=== PATIENT | male | born 1970 | race Caucasian/White ===

== ENCOUNTER 2022-07-01 15:15 | Outpatient (RCR) | payer BC, SELFPAY ==
[2022-04-07 08:46] LABS: Red Blood Count 5.57 m/uL (4.30-5.90); White Blood Count* 17.52 K/uL (4.50-11.00)
[2022-04-07 08:47] LABS: Basophils Percent Auto 0.1 % (0.0-3.0); Eosinophils Percent Auto 0.4 % (0.0-7.0); Hematocrit 49.4 % (37.0-53.0); Hemoglobin* 16.1 gm/dL (13.5-17.5); Immature Granulocytes Pct Auto 0.1 %; Lymphocytes Percent Auto 57.6 % (20-44); Mean Corpuscular HGB Conc 33 gm/dL (32-36); Mean Corpuscular Hemoglobin 29 pg (26-34); Mean Corpuscular Volume 89 fL (80-100); Monocytes Percent Auto 5.8 % (0.0-11.0); Platelet Count* 182 K/uL (140-440)
[2022-04-07 08:48] LABS: Slide Review Reflex No
[2022-04-07 08:52] LABS: Albumin* 4.3 g/dL (3.3-5.0); Chloride* 102 mmol/L (96-114)
[2022-04-07 08:53] LABS: Potassium* 3.6 mmol/L (3.6-5.1); Sodium* 138 mmol/L (135-149)
[2022-04-07 08:55] LABS: Alkaline Phosphatase* 82 U/L (40-150); Aspartate Amino Transferase* 27 U/L (12-35); Bilirubin Total* 0.6 mg/dL (0.1-1.5); Blood Urea Nitrogen* 20 mg/dL (7-30); Carbon Dioxide* 28 mmol/L (20-32); Creatinine* 0.8 mg/dL (0.5-1.5); Estimated Glomerular Filt Rate 107 ml/min; Glucose* 128 mg/dL (60-115); Lactate Dehydrogenase* 425 U/L (313-618); Total Protein* 7.2 g/dL (6.0-8.3)
[2022-04-07 08:56] LABS: Alanine Aminotransferase* 40 U/L (4-50); Calcium* 8.8 mg/dL (8.4-10.6)
--- NOTE | 2022-04-08 17:01 | ONC.NURNOTE ---
Message left on voicemail that labs were stable and no changes needed. Will see patient back in June
[2022-06-29 08:41] LABS: Basophils Percent Auto 0.2 % (0.0-3.0); Eosinophils Percent Auto 0.3 % (0.0-7.0); Hematocrit 49.4 % (37.0-53.0); Hemoglobin* 15.9 gm/dL (13.5-17.5); Immature Granulocytes Pct Auto 0.2 %; Lymphocytes Percent Auto 56.7 % (20-44); Mean Corpuscular HGB Conc 32 gm/dL (32-36); Mean Corpuscular Hemoglobin 28 pg (26-34); Mean Corpuscular Volume 88 fL (80-100); Monocytes Percent Auto 6.7 % (0.0-11.0); Neutrophils Percent Auto 35.9 % (42.0-72.0); Platelet Count* 163 K/uL (140-440); RDW Coefficient of Variation % 13.9 % (11.5-15.5); Red Blood Count 5.63 m/uL (4.30-5.90); White Blood Count* 16.16 K/uL (4.50-11.00)
[2022-06-29 08:50] LABS: Slide Review Reflex Yes
[2022-06-29 08:52] LABS: Albumin* 4.2 g/dL (3.3-5.0)
[2022-06-29 08:53] LABS: Chloride* 107 mmol/L (96-114); Sodium* 139 mmol/L (135-149)
[2022-06-29 08:54] LABS: Cholesterol* 170 mg/dL (90-199)
[2022-06-29 08:55] LABS: Glucose* 88 mg/dL (60-115); HDL Cholesterol* 58 mg/dL (>=40); LDL Cholesterol Calculated 96 mg/dL (<100); Triglycerides* 79 mg/dL (40-149)
[2022-06-29 08:55] LABS: Bilirubin Total* 0.6 mg/dL (0.1-1.5); Carbon Dioxide* 27 mmol/L (20-32); Creatinine* 0.7 mg/dL (0.5-1.5); Estimated Glomerular Filt Rate 112 ml/min
[2022-06-29 08:56] LABS: Alanine Aminotransferase* 37 U/L (4-50); Alkaline Phosphatase* 65 U/L (40-150); Aspartate Amino Transferase* 28 U/L (12-35); Blood Urea Nitrogen* 20 mg/dL (7-30); Calcium* 8.8 mg/dL (8.4-10.6); Glucose* 88 mg/dL (60-115); Total Protein* 6.9 g/dL (6.0-8.3)
[2022-06-29 09:26] LABS: PSA Screen* 0.87 ng/mL (0.10-4.00)
[2022-06-29 09:46] LABS: Slide Review Acceptable Review (Acceptable)
--- NOTE | 2022-07-03 10:58 | ONC.NURNOTE ---
Patient called wanting his appointment cancelled and wondered if Dr. Goetz could review labs and then he could see a provider in with next blood draw. Dr. Goetz reviewed and said labs all stable for patient so OK to skip MD appointment until October Appointment made for labs and MD at end of September per patient request.
== END 2022-10-04 23:59 | disposition home or self-care (01) ==
LOC: CCIC 15:15
PROVIDERS: Physician Assistant Medical; PCP Internal Medicine Hematology & Oncology; Referring Provider Internal Medicine Hematology & Oncology; Visit Provider Internal Medicine Hematology & Oncology
DX: C91.10 Chronic lymphocytic leukemia of B-cell type not having achieved remission (principal)
CPT/HCPCS: 36415; 80053; 80061; 82947; 83615; 84153; 85025

== ENCOUNTER 2022-07-28 10:56 | Outpatient (CLI) | payer BC, SELFPAY | END 2022-07-28 10:57 | disposition home or self-care (01) | LOC: OP CLINIC 10:57 | PROVIDERS: PCP Physician Assistant Medical; Visit Provider Surgery | DX: Z12.11 Encounter for screening for malignant neoplasm of colon (principal); K57.30 Diverticulosis of large intestine without perforation or abscess without bleeding | CPT/HCPCS: 45378; J2250; J3010 ==

== ENCOUNTER 2023-01-13 08:00 | Outpatient (RCR) | payer BC, SELFPAY ==
[2022-10-08 09:01] LABS: Basophils Percent Auto 0.1 % (0.0-3.0); Eosinophils Percent Auto 0.3 % (0.0-7.0); Hematocrit 51.3 % (37.0-53.0); Hemoglobin* 16.6 gm/dL (13.5-17.5); Immature Granulocytes Pct Auto 0.1 %; Lymphocytes Percent Auto 57.2 % (20-44); Mean Corpuscular HGB Conc 32 gm/dL (32-36); Mean Corpuscular Hemoglobin 28 pg (26-34); Mean Corpuscular Volume 87 fL (80-100); Monocytes Percent Auto 6.4 % (0.0-11.0); Neutrophils Percent Auto 35.9 % (42.0-72.0); Platelet Count* 162 K/uL (140-440); RDW Coefficient of Variation % 14.7 % (11.5-15.5); Red Blood Count 5.91 m/uL (4.30-5.90); White Blood Count* 17.84 K/uL (4.50-11.00)
[2022-10-08 09:07] LABS: Slide Review Reflex Yes
[2022-10-08 09:20] LABS: Albumin* 4.2 g/dL (3.3-5.0); Chloride* 105 mmol/L (96-114); Potassium* 3.8 mmol/L (3.6-5.1); Sodium* 138 mmol/L (135-149)
[2022-10-08 09:22] LABS: Bilirubin Total* 0.6 mg/dL (0.1-1.5); Creatinine* 0.7 mg/dL (0.5-1.5); Estimated Glomerular Filt Rate 111 ml/min
[2022-10-08 09:23] LABS: Alanine Aminotransferase* 49 U/L (4-50); Alkaline Phosphatase* 67 U/L (40-150); Aspartate Amino Transferase* 29 U/L (12-35); Blood Urea Nitrogen* 22 mg/dL (7-30); Carbon Dioxide* 26 mmol/L (20-32); Glucose* 131 mg/dL (60-115); Lactate Dehydrogenase* 177 U/L (120-246); Total Protein* 7.3 g/dL (6.0-8.3)
[2022-10-08 09:24] LABS: Calcium* 8.9 mg/dL (8.4-10.6)
[2022-10-08 09:45] LABS: Slide Review Acceptable Review (Acceptable)
[2023-01-13 08:20] LABS: Basophils Percent Auto 0.2 % (0.0-3.0); Eosinophils Percent Auto 0.6 % (0.0-7.0); Hematocrit 49.2 % (37.0-53.0); Hemoglobin* 15.9 gm/dL (13.5-17.5); Immature Granulocytes Pct Auto 0.2 %; Lymphocytes Percent Auto 53.9 % (20-44); Mean Corpuscular HGB Conc 32 gm/dL (32-36); Mean Corpuscular Hemoglobin 29 pg (26-34); Mean Corpuscular Volume 89 fL (80-100); Monocytes Percent Auto 5.1 % (0.0-11.0); Platelet Count* 146 K/uL (140-440); RDW Coefficient of Variation % 14.5 % (11.5-15.5); Red Blood Count 5.53 m/uL (4.30-5.90); White Blood Count* 16.05 K/uL (4.50-11.00)
[2023-01-13 08:26] LABS: Slide Review Reflex No
[2023-01-13 08:34] LABS: Albumin* 3.9 g/dL (3.3-5.0)
[2023-01-13 08:35] LABS: Chloride* 102 mmol/L (96-114); Potassium* 3.6 mmol/L (3.6-5.1); Sodium* 137 mmol/L (135-149)
[2023-01-13 08:37] LABS: Alkaline Phosphatase* 70 U/L (40-150); Aspartate Amino Transferase* 33 U/L (12-35); Bilirubin Total* 0.4 mg/dL (0.1-1.5); Carbon Dioxide* 29 mmol/L (20-32); Creatinine* 0.7 mg/dL (0.5-1.5); Estimated Glomerular Filt Rate 111 ml/min; Total Protein* 6.6 g/dL (6.0-8.3)
[2023-01-13 08:38] LABS: Alanine Aminotransferase* 50 U/L (4-50); Blood Urea Nitrogen* 20 mg/dL (7-30); Calcium* 8.5 mg/dL (8.4-10.6); Glucose* 130 mg/dL (60-115); Lactate Dehydrogenase* 196 U/L (120-246)
== END 2023-04-06 23:59 | disposition home or self-care (01) ==
LOC: CCIC 08:00
PROVIDERS: PCP Physician Assistant Medical; Referring Provider Internal Medicine Hematology & Oncology; Visit Provider Internal Medicine Hematology & Oncology
DX: C91.10 Chronic lymphocytic leukemia of B-cell type not having achieved remission (principal)
CPT/HCPCS: 36415; 80053; 83615; 85025; 99212; 99213; 99214

== ENCOUNTER 2023-07-21 08:00 | Outpatient (RCR) | payer BC, SELFPAY ==
[2023-04-09 08:27] LABS: Basophils Percent Auto 0.1 % (0.0-3.0); Eosinophils Percent Auto 0.6 % (0.0-7.0); Hematocrit 50.1 % (37.0-53.0); Hemoglobin* 16.1 gm/dL (13.5-17.5); Immature Granulocytes Pct Auto 0.5 %; Lymphocytes Percent Auto 57.7 % (20-44); Mean Corpuscular HGB Conc 32 gm/dL (32-36); Mean Corpuscular Hemoglobin 28 pg (26-34); Mean Corpuscular Volume 88 fL (80-100); Monocytes Percent Auto 6.1 % (0.0-11.0); Platelet Count* 196 K/uL (140-440); RDW Coefficient of Variation % 14.1 % (11.5-15.5); Red Blood Count 5.69 m/uL (4.30-5.90); White Blood Count* 19.95 K/uL (4.50-11.00)
[2023-04-09 08:32] LABS: Slide Review Reflex Yes
[2023-04-09 08:40] LABS: Albumin* 4.3 g/dL (3.3-5.0); Chloride* 103 mmol/L (96-114); Potassium* 3.3 mmol/L (3.6-5.1); Sodium* 137 mmol/L (135-149)
[2023-04-09 08:42] LABS: Anion Gap 7 mEq/L (7-15); Bilirubin Total* 0.8 mg/dL (0.1-1.5); Carbon Dioxide* 27 mmol/L (20-32); Creatinine* 0.8 mg/dL (0.5-1.5); Estimated Glomerular Filt Rate 106 ml/min
[2023-04-09 08:43] LABS: Alanine Aminotransferase* 57 U/L (4-50); Alkaline Phosphatase* 81 U/L (40-150); Aspartate Amino Transferase* 41 U/L (12-35); Blood Urea Nitrogen* 18 mg/dL (7-30); Calcium* 9.4 mg/dL (8.4-10.6); Glucose* 115 mg/dL (60-115); Lactate Dehydrogenase* 256 U/L (120-246); Total Protein* 7.6 g/dL (6.0-8.3)
[2023-04-09 10:32] LABS: Slide Review Acceptable Review (Acceptable)
[2023-07-21 08:39] LABS: Basophils Percent Auto 0.2 % (0.0-3.0); Eosinophils Percent Auto 0.3 % (0.0-7.0); Hematocrit 49.2 % (37.0-53.0); Hemoglobin* 15.8 gm/dL (13.5-17.5); Immature Granulocytes Pct Auto 0.2 %; Lymphocytes Percent Auto 52.4 % (20-44); Mean Corpuscular HGB Conc 32 gm/dL (32-36); Mean Corpuscular Hemoglobin 28 pg (26-34); Mean Corpuscular Volume 88 fL (80-100); Monocytes Percent Auto 6.1 % (0.0-11.0); Neutrophils Percent Auto 40.8 % (42.0-72.0); Platelet Count* 174 K/uL (140-440); RDW Coefficient of Variation % 14.3 % (11.5-15.5); Red Blood Count 5.62 m/uL (4.30-5.90); White Blood Count* 17.31 K/uL (4.50-11.00)
[2023-07-21 08:48] LABS: Slide Review Reflex Yes
[2023-07-21 08:58] LABS: Chloride* 103 mmol/L (96-114); Potassium* 3.7 mmol/L (3.6-5.1); Sodium* 136 mmol/L (135-149)
[2023-07-21 09:00] LABS: Creatinine* 0.7 mg/dL (0.5-1.5); Estimated Glomerular Filt Rate 111 ml/min
[2023-07-21 09:01] LABS: Alanine Aminotransferase* 41 U/L (4-50); Alkaline Phosphatase* 76 U/L (40-150); Anion Gap 7 mEq/L (7-15); Aspartate Amino Transferase* 26 U/L (12-35); Bilirubin Total* 0.5 mg/dL (0.1-1.5); Blood Urea Nitrogen* 18 mg/dL (7-30); Carbon Dioxide* 26 mmol/L (20-32); Glucose* 130 mg/dL (60-115); Lactate Dehydrogenase* 183 U/L (120-246)
[2023-07-21 09:02] LABS: Calcium* 8.5 mg/dL (8.4-10.6)
[2023-07-21 09:13] LABS: Slide Review Acceptable Review (Acceptable)
--- NOTE | 2023-07-26 13:18 | ONC.NURNOTE ---
Labs reviewed by Dr. Goetz. [employer] called pt to inform him labs were reviewed by Dr. Goetz and no intervention is needed at this time. Pt verbalized understanding of plan of care.
== END 2023-10-06 23:59 | disposition home or self-care (01) ==
LOC: CCIC 08:00
PROVIDERS: PCP Physician Assistant Medical; Referring Provider Internal Medicine Hematology & Oncology; Visit Provider Internal Medicine Hematology & Oncology
DX: C91.10 Chronic lymphocytic leukemia of B-cell type not having achieved remission (principal)
CPT/HCPCS: 36415; 80053; 83615; 85025; 99212; 99213; 99214

== ENCOUNTER 2023-08-09 07:50 | Outpatient (CLI) | payer BC, SELFPAY ==
--- NOTE | 2023-08-09 08:00 | CRLHL7_ITS ---
For Patients: As a result of the Century Cures Act, medical imaging exams and procedure reports are released immediately into your electronic medical record. You may view this report before your referring provider. If you have questions, please contact your health care provider. Indication: Calculus of kidney, kidney stone, hernia Technique: Noncontrast CT abdomen and pelvis Please note that all CT scans at this facility use dose modulation, iterative reconstruction, and/or weight-based dosing when appropriate to reduce radiation dose to as low as reasonably achievable. Comparison: 10/30/2019 Findings: Linear scarring within the right lower lobe. No pleural effusion. Fatty liver. Gallbladder normal. Normal pancreas. Spleen within normal limits. No hiatal hernia. No adenopathy. No bladder stone. Prostate calcifications. Diverticulosis. No bowel obstruction, free air, free fluid or abscess. No abdominal wall hernia. The ureters are within normal limits. Punctate calcification within each kidney. No hydronephrosis. Postop changes to the upper retroperitoneum. Similar appearance of the adrenal glands. Degenerative disc disease L5-S1. No fracture. Impression: Punctate nonobstructing calculi in both kidneys. Normal ureters and bladder. Please note that all CT scans at this facility use dose modulation, iterative reconstruction, and/or weight-based dosing when appropriate to reduce radiation dose to as low as reasonably achievable. Dictated by Pankaj Matias MD @ 08/09/2023 9:15:29 AM (Electronically Signed)
== END 2023-08-09 07:51 | disposition home or self-care (01) ==
PROVIDERS: PCP Physician Assistant Medical; Visit Provider Physician Assistant Medical
DX: N20.0 Calculus of kidney (principal); K42.9 Umbilical hernia without obstruction or gangrene
CPT/HCPCS: 74176

== ENCOUNTER 2024-04-21 08:00 | Outpatient (RCR) | payer OTHER, SELFPAY ==
[2023-10-25 15:16] LABS: Basophils Percent Auto 0.1 % (0.0-3.0); Eosinophils Percent Auto 0.4 % (0.0-7.0); Hematocrit 49.1 % (37.0-53.0); Hemoglobin* 15.9 gm/dL (13.5-17.5); Immature Granulocytes Pct Auto 0.1 %; Lymphocytes Percent Auto 53.3 % (20-44); Mean Corpuscular HGB Conc 32 gm/dL (32-36); Mean Corpuscular Hemoglobin 28 pg (26-34); Mean Corpuscular Volume 87 fL (80-100); Monocytes Percent Auto 5.8 % (0.0-11.0); Neutrophils Percent Auto 40.3 % (42.0-72.0); Platelet Count* 169 K/uL (140-440); RDW Coefficient of Variation % 14.8 % (11.5-15.5); Red Blood Count 5.64 m/uL (4.30-5.90)
[2023-10-25 15:25] LABS: Albumin* 4.2 g/dL (3.3-5.0); Chloride* 103 mmol/L (96-114)
[2023-10-25 15:26] LABS: Potassium* 3.4 mmol/L (3.6-5.1); Sodium* 137 mmol/L (135-149)
[2023-10-25 15:28] LABS: Anion Gap 8 mEq/L (7-15); Aspartate Amino Transferase* 33 U/L (12-35); Bilirubin Total* 0.5 mg/dL (0.1-1.5); Blood Urea Nitrogen* 23 mg/dL (7-30); Carbon Dioxide* 26 mmol/L (20-32); Estimated Glomerular Filt Rate 90 ml/min; Total Protein* 7.3 g/dL (6.0-8.3)
[2023-10-25 15:29] LABS: Alanine Aminotransferase* 53 U/L (4-50); Alkaline Phosphatase* 68 U/L (40-150); Glucose* 122 mg/dL (60-115)
[2023-10-25 15:44] LABS: Slide Review Reflex No
[2023-10-25 22:25] LABS: Lactate Dehydrogenase* 226 U/L (120-246)
[2024-01-24 08:58] LABS: Basophils Percent Auto 0.2 % (0.0-3.0); Eosinophils Percent Auto 0.5 % (0.0-7.0); Hematocrit 50.4 % (37.0-53.0); Hemoglobin* 16.3 gm/dL (13.5-17.5); Immature Granulocytes Pct Auto 0.2 %; Lymphocytes Percent Auto 59.2 % (20-44); Mean Corpuscular HGB Conc 32 gm/dL (32-36); Mean Corpuscular Hemoglobin 28 pg (26-34); Mean Corpuscular Volume 88 fL (80-100); Monocytes Percent Auto 6.6 % (0.0-11.0); Neutrophils Percent Auto 33.3 % (42.0-72.0); Platelet Count* 154 K/uL (140-440); RDW Coefficient of Variation % 13.9 % (11.5-15.5); Red Blood Count 5.74 m/uL (4.30-5.90); White Blood Count* 17.64 K/uL (4.50-11.00)
[2024-01-24 09:07] LABS: Chloride* 105 mmol/L (96-114)
[2024-01-24 09:08] LABS: Albumin* 4.2 g/dL (3.3-5.0); Potassium* 3.6 mmol/L (3.6-5.1); Sodium* 137 mmol/L (135-149)
[2024-01-24 09:10] LABS: Anion Gap 6 mEq/L (7-15); Bilirubin Total* 0.9 mg/dL (0.1-1.5); Carbon Dioxide* 26 mmol/L (20-32); Creatinine* 0.7 mg/dL (0.5-1.5); Estimated Glomerular Filt Rate 110 ml/min
[2024-01-24 09:11] LABS: Alanine Aminotransferase* 59 U/L (4-50); Alkaline Phosphatase* 80 U/L (40-150); Aspartate Amino Transferase* 33 U/L (12-35); Blood Urea Nitrogen* 20 mg/dL (7-30); Calcium* 9.1 mg/dL (8.4-10.6); Glucose* 106 mg/dL (60-115); Lactate Dehydrogenase* 211 U/L (120-246)
[2024-01-24 09:14] LABS: Slide Review Reflex Yes
[2024-01-24 09:50] LABS: Slide Review Acceptable Review (Acceptable)
--- NOTE | 2024-01-24 16:34 | ONC.NURNOTE ---
Lab results called to [facility] noted ALT
[2024-04-21 08:35] LABS: Basophils Percent Auto 0.2 % (0.0-3.0); Eosinophils Percent Auto 0.6 % (0.0-7.0); Hematocrit 49.1 % (37.0-53.0); Hemoglobin* 15.8 gm/dL (13.5-17.5); Immature Granulocytes Pct Auto 0.2 %; Lymphocytes Percent Auto 51.2 % (20-44); Mean Corpuscular HGB Conc 32 gm/dL (32-36); Mean Corpuscular Hemoglobin 29 pg (26-34); Mean Corpuscular Volume 89 fL (80-100); Monocytes Percent Auto 12.2 % (0.0-11.0); Neutrophils Percent Auto 35.6 % (42.0-72.0); Platelet Count* 172 K/uL (140-440); RDW Coefficient of Variation % 14.6 % (11.5-15.5); Red Blood Count 5.49 m/uL (4.30-5.90); White Blood Count* 17.17 K/uL (4.50-11.00)
[2024-04-21 08:45] LABS: Albumin* 4.2 g/dL (3.3-5.0); Chloride* 104 mmol/L (96-114); Potassium* 3.8 mmol/L (3.6-5.1); Sodium* 136 mmol/L (135-149)
[2024-04-21 08:47] LABS: Anion Gap 6 mEq/L (7-15); Bilirubin Total* 0.4 mg/dL (0.1-1.5); Carbon Dioxide* 26 mmol/L (20-32); Creatinine* 0.8 mg/dL (0.5-1.5); Estimated Glomerular Filt Rate 106 ml/min
[2024-04-21 08:48] LABS: Alanine Aminotransferase* 49 U/L (4-50); Alkaline Phosphatase* 66 U/L (40-150); Aspartate Amino Transferase* 31 U/L (12-35); Blood Urea Nitrogen* 27 mg/dL (7-30); Calcium* 8.9 mg/dL (8.4-10.6); Glucose* 102 mg/dL (60-115); Lactate Dehydrogenase* 223 U/L (120-246); Total Protein* 6.9 g/dL (6.0-8.3)
[2024-04-21 08:57] LABS: Slide Review Reflex Yes
[2024-04-21 09:33] LABS: Slide Review Acceptable Review (Acceptable)
== END 2024-04-22 23:59 | disposition home or self-care (01) ==
LOC: CCIC 08:00
PROVIDERS: PCP Physician Assistant Medical; Referring Provider Internal Medicine Hematology & Oncology; Visit Provider Internal Medicine Hematology & Oncology
DX: C91.10 Chronic lymphocytic leukemia of B-cell type not having achieved remission (principal)
CPT/HCPCS: 36415; 80053; 83615; 84443; 85025; 99213; 99214; G0463

== ENCOUNTER 2024-10-10 08:00 | Outpatient (RCR) | payer OTHER, SELFPAY ==
[2024-07-31 08:23] LABS: Basophils Percent Auto 0.2 % (0.0-3.0); Eosinophils Percent Auto 0.3 % (0.0-7.0); Hematocrit 49.2 % (37.0-53.0); Hemoglobin* 15.8 gm/dL (13.5-17.5); Immature Granulocytes Pct Auto 0.3 %; Lymphocytes Percent Auto 54.8 % (20-44); Mean Corpuscular HGB Conc 32 gm/dL (32-36); Mean Corpuscular Hemoglobin 28 pg (26-34); Mean Corpuscular Volume 87 fL (80-100); Monocytes Percent Auto 8.2 % (0.0-11.0); Neutrophils Percent Auto 36.2 % (42.0-72.0); Platelet Count* 167 K/uL (140-440); RDW Coefficient of Variation % 13.9 % (11.5-15.5); Red Blood Count 5.64 m/uL (4.30-5.90); White Blood Count* 16.13 K/uL (4.50-11.00)
[2024-07-31 08:27] LABS: Slide Review Reflex No
[2024-07-31 09:05] LABS: Albumin* 3.8 g/dL (3.3-5.0); Chloride* 103 mmol/L (96-114)
[2024-07-31 09:06] LABS: Sodium* 136 mmol/L (135-149)
[2024-07-31 09:08] LABS: Alkaline Phosphatase* 64 U/L (40-150); Anion Gap 5 mEq/L (7-15); Aspartate Amino Transferase* 21 U/L (12-35); Bilirubin Total* 0.7 mg/dL (0.1-1.5); Carbon Dioxide* 28 mmol/L (20-32); Creatinine* 0.8 mg/dL (0.5-1.5); Estimated Glomerular Filt Rate 106 ml/min; Total Protein* 6.3 g/dL (6.0-8.3)
[2024-07-31 09:09] LABS: Alanine Aminotransferase* 42 U/L (4-50); Blood Urea Nitrogen* 19 mg/dL (7-30); Calcium* 8.7 mg/dL (8.4-10.6); Cholesterol* 172 mg/dL (90-199); Glucose* 87 mg/dL (60-115); Lactate Dehydrogenase* 201 U/L (120-246); Triglycerides* 102 mg/dL (40-149)
[2024-07-31 09:10] LABS: HDL Cholesterol* 58 mg/dL (>=40); LDL Cholesterol Calculated 94 mg/dL (<100)
[2024-07-31 10:27] LABS: PSA Screen* 1.31 ng/mL (0.10-4.00)
[2024-07-31 14:34] LABS: Hemoglobin A1C* 5.9 % (0-5.6)
[2024-10-06 08:29] LABS: Basophils Percent Auto 0.1 % (0.0-3.0); Eosinophils Percent Auto 0.5 % (0.0-7.0); Hematocrit 49.6 % (37.0-53.0); Hemoglobin* 15.9 gm/dL (13.5-17.5); Immature Granulocytes Pct Auto 0.3 %; Lymphocytes Percent Auto 56.8 % (20-44); Mean Corpuscular HGB Conc 32 gm/dL (32-36); Mean Corpuscular Hemoglobin 29 pg (26-34); Mean Corpuscular Volume 89 fL (80-100); Monocytes Percent Auto 5.6 % (0.0-11.0); Neutrophils Percent Auto 36.7 % (42.0-72.0); Platelet Count* 171 K/uL (140-440); RDW Coefficient of Variation % 15.2 % (11.5-15.5); Red Blood Count 5.57 m/uL (4.30-5.90); White Blood Count* 17.54 K/uL (4.50-11.00)
[2024-10-06 08:42] LABS: Albumin* 3.9 g/dL (3.3-5.0); Chloride* 105 mmol/L (96-114); Potassium* 3.8 mmol/L (3.6-5.1); Sodium* 139 mmol/L (135-149)
[2024-10-06 08:45] LABS: Alanine Aminotransferase* 52 U/L (4-50); Alkaline Phosphatase* 64 U/L (40-150); Anion Gap 4 mEq/L (7-15); Aspartate Amino Transferase* 35 U/L (12-35); Bilirubin Total* 0.5 mg/dL (0.1-1.5); Blood Urea Nitrogen* 23 mg/dL (7-30); Carbon Dioxide* 30 mmol/L (20-32); Creatinine* 0.8 mg/dL (0.5-1.5); Estimated Glomerular Filt Rate 105 ml/min; Lactate Dehydrogenase* 194 U/L (120-246); Slide Review Reflex Yes; Total Protein* 6.7 g/dL (6.0-8.3)
[2024-10-06 08:46] LABS: Calcium* 8.4 mg/dL (8.4-10.6); Glucose* 92 mg/dL (60-115)
[2024-10-06 09:54] LABS: Slide Review Acceptable Review (Acceptable)
== END 2024-10-21 23:59 | disposition home or self-care (01) ==
LOC: CCIC 08:00
PROVIDERS: PCP Physician Assistant Medical; Referring Provider Internal Medicine Hematology & Oncology; Visit Provider Internal Medicine Hematology & Oncology
DX: C91.10 Chronic lymphocytic leukemia of B-cell type not having achieved remission (principal); E87.6 Hypokalemia
CPT/HCPCS: 36415; 80053; 80061; 83036; 83615; 84443; 85025; 99213; 99214; G0103; G0463

== ENCOUNTER 2025-01-08 07:58 | Outpatient (RCR) | payer OTHER, SELFPAY ==
[2025-01-08 08:30] LABS: Hematocrit* 49.2 % (37.0-53.0); Hemoglobin* 16.0 gm/dL (13.5-17.5); Immature Granulocytes Pct Auto 0.2 %; Mean Corpuscular HGB Conc 33 gm/dL (32-36); Mean Corpuscular Hemoglobin 29 pg (26-34); Mean Corpuscular Volume 88 fL (80-100); RDW Coefficient of Variation % 13.8 % (11.5-15.5); Red Blood Count* 5.60 m/uL (4.30-5.90); White Blood Count* 17.29 K/uL (4.50-11.00)
[2025-01-08 08:51] LABS: Albumin* 4.1 g/dL (3.3-5.0); Chloride* 102 mmol/L (96-114); Potassium* 3.3 mmol/L (3.6-5.1); Sodium* 137 mmol/L (135-149)
[2025-01-08 08:54] LABS: Alanine Aminotransferase* 54 U/L (4-50); Alkaline Phosphatase* 70 U/L (40-150); Anion Gap 9 mEq/L (7-15); Aspartate Amino Transferase* 36 U/L (12-35); Bilirubin Total* 0.7 mg/dL (0.1-1.5); Blood Urea Nitrogen* 18 mg/dL (7-30); Calcium* 8.8 mg/dL (8.4-10.6); Carbon Dioxide* 26 mmol/L (20-32); Creatinine* 0.8 mg/dL (0.5-1.5); Estimated Glomerular Filt Rate 105 ml/min; Glucose* 105 mg/dL (60-115); Total Protein* 6.9 g/dL (6.0-8.3)
[2025-01-08 08:57] LABS: Immature Granulocytes Abs Auto 0.00 K/uL (0.00-0.30); Lymphocytes Absolute Auto 8.90 K/uL (0.90-2.90); Slide Review Reflex Yes
[2025-01-08 09:00] LABS: Slide Review Acceptable Review (Acceptable)
== END 2025-07-07 23:59 | disposition home or self-care (01) ==
LOC: CCIC 07:58
PROVIDERS: PCP Physician Assistant Medical; Referring Provider Internal Medicine Hematology & Oncology; Visit Provider Internal Medicine Hematology & Oncology
DX: C91.10 Chronic lymphocytic leukemia of B-cell type not having achieved remission (principal); E87.6 Hypokalemia; R73.03 Prediabetes; Z86.39 Personal history of other endocrine, nutritional and metabolic disease; I10 Essential (primary) hypertension
CPT/HCPCS: 36415; 80053; 83615; 85025

== ENCOUNTER 2025-01-11 15:51 | Outpatient (CLI) | payer OTHER, SELFPAY | END 2025-01-11 15:52 | disposition home or self-care (01) | LOC: FRMREF 15:52 | PROVIDERS: PCP Physician Assistant Medical; Visit Provider Physician Assistant Medical | DX: E87.6 Hypokalemia (principal); R73.03 Prediabetes; C91.10 Chronic lymphocytic leukemia of B-cell type not having achieved remission; R53.83 Other fatigue; Z79.899 Other long term (current) drug therapy | CPT/HCPCS: 82306; 82607; 82728; 84403 ==

== ENCOUNTER 2025-03-14 07:35 | Outpatient (CLI) | payer OTHER, SELFPAY | END 2025-03-14 07:36 | disposition home or self-care (01) | LOC: NFLDREF 03-15 15:09 | PROVIDERS: PCP Physician Assistant Medical; Referring Provider Physician Assistant Medical; Visit Provider Physician Assistant Medical | DX: E87.6 Hypokalemia (principal); E55.9 Vitamin D deficiency, unspecified; R73.03 Prediabetes; Z12.5 Encounter for screening for malignant neoplasm of prostate | CPT/HCPCS: 82306; G0103 ==

== ENCOUNTER 2025-07-10 08:34 | Outpatient (CLI) | payer OTHER, SELFPAY | END 2025-07-10 08:35 | disposition home or self-care (01) | LOC: NFLDREF 07-16 05:21 | PROVIDERS: PCP Physician Assistant Medical; Referring Provider Physician Assistant Medical; Visit Provider Physician Assistant Medical | DX: E87.6 Hypokalemia (principal); R73.03 Prediabetes | CPT/HCPCS: 80053; 80061; 82306; 84403; 84443; G0103 ==